=== PATIENT | female | born 1970 | race Caucasian/White ===

== ENCOUNTER 2019-05-14 11:25 | Inpatient (IN) | payer MEDICARE, MEDICAID ==
[~2019-05-14] VITALS: Ht 157.5 cm; Wt 47.6 kg
--- NOTE | 2019-05-14 11:25 | NUR ---
ED Nurse Note: pt brought in by ambulance [id number] for pain and swelling to right middle finger x 10 days. IV line established. Blood samplescollected and sent to lab. pt changed into hospital gown.
[2019-05-14] MEDS ORDERED: Vancomycin 1.5gm/NS Premix 275 ML IVPB SCH (11:30)
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
[2019-05-14 11:36] VITALS: BP 112/70
[2019-05-14] MEDS ORDERED: Vancomycin 1.5gm vial IVPB ONE (11:41)
[2019-05-14] MEDS ORDERED: Vancomycin 1 GM in NS 275 ML IVPB ONE (11:45)
[2019-05-14] MEDS ORDERED: Vancomycin 1gm vial IVPB ONE (11:45)
[2019-05-14 11:50] LABS: BASOPHILS % (AUTO) 0.3 % (0.0-2.0); HEMATOCRIT 35.3 % (37.0-47.0); HEMOGLOBIN 11.1 G/DL (12.0-16.0); LYMPHOCYTES % (AUTO) 21.1 % (20.0-45.0); MEAN CORPUSCULAR VOLUME 73 FL (80-99); MONOCYTES % (AUTO) 7.9 % (1.0-10.0); NEUTROPHILS % (AUTO) 69.7 % (45.0-75.0); PLATELET COUNT 331 K/UL (150-450); RED BLOOD COUNT 4.83 M/UL (4.20-5.40); RED CELL DISTRIBUTION WIDTH 15.4 % (11.6-14.8); WHITE BLOOD COUNT 8.3 K/UL (4.8-10.8)
--- NOTE | 2019-05-14 11:51 | NUR ---
ED Nurse Note: x ray being done at bedside.
[2019-05-14 12:00] LABS: ANION GAP 11 mmol/L (5-15); BLOOD UREA NITROGEN 11 mg/dL (7-18); CALCIUM 8.7 MG/DL (8.5-10.1); CARBON DIOXIDE 26 MMOL/L (21-32); CHLORIDE 105 MMOL/L (98-107); CREATININE 0.7 MG/DL (0.55-1.30); POTASSIUM 3.7 MMOL/L (3.5-5.1); SODIUM 141 MMOL/L (136-145)
[2019-05-14] MEDS ORDERED: Morphine Sulfate 4mg/ml Inj (IV USE ONLY) IVP ONE (12:00)
--- NOTE | 2019-05-14 12:06 | Diagnostic Imaging Report ---
EXAM: XR Right Hand Complete, 3 or More Views CLINICAL HISTORY: INJ TECHNIQUE: Frontal, lateral and oblique views of the right hand. COMPARISON: None FINDINGS: Bones/joints: No displaced fracture or dislocation identified. Osteopenia. Irregularity of the right first distal phalanx may be related to erosion or old trauma. Soft tissues: Soft tissue swelling, most prominently involving the first, second, and third digits. Mild soft tissue swelling in the dorsal right hand IMPRESSION: 1. No displaced fracture or dislocation identified. 2. Soft tissue swelling.
--- NOTE | 2019-05-14 12:12 | NUR ---
ED Nurse Note: report given to sole mack. endorsed plan of care.
--- NOTE | 2019-05-14 12:12 | NUR ---
ED Nurse Note: Patient resting in bed, no s/s of acute distress
[2019-05-14] MEDS ORDERED: Tetanus/Diptheria/Pertussis IM ONE (13:15)
--- NOTE | 2019-05-14 14:26 | NUR ---
ED Nurse Note: Report given to Analilia GONZALEZ
--- NOTE | 2019-05-14 14:35 | NUR ---
NURSE NOTES: Patient arrived to [facility]- via gurney on RA, in stable condition. Patient AOx4, calm. Pain to right middle finger 4/10. No distress, respirations even/unlabored. LAC heplock intact, site asymptomatic. Right middle finger purple discoloration, skin intact, swollen, able to move/wiggle. All belongings with patient, belongings sheet reviewed, patient's wheelchair at bedside, labeled. Oriented patient to room and call light for safety, verbalized understanding. Bed in lowest position, call light in reach, will continue to monitor.
[2019-05-14] MEDS ORDERED: SEROQUEL300 MG ORAL (15:08)
[2019-05-14] MEDS ORDERED: MINIPRESS1 MG PO (15:09)
[2019-05-14] MEDS ORDERED: VENLAFAXINE H37.5 MG ORAL (15:09)
[2019-05-14] MEDS ORDERED: VENTOLIN HFA18 GM INH (15:10)
[2019-05-14 15:15] VITALS: BP 102/63
--- NOTE | 2019-05-14 19:35 | NUR ---
HAND-OFF: Report given to Meenu GONZALEZ, rounds made. Patient vomiting, before eating any food from tray. Meenu will obtain orders for anti-emetic medication, patient verbalized understanding.
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
[2019-05-14 20:00] VITALS: BP 122/75
[2019-05-14] MEDS: Venlafaxine HCl 37.5mg Tab ORAL SCH (21:12)
[2019-05-14] MEDS: Heparin 5000 units/ml inj SUBQ SCH (21:15)
[2019-05-14] MEDS ORDERED: NS IVPB SCH (22:00)
[2019-05-14] MEDS ORDERED: AMPICILLIN IVPB SCH (22:00)
[2019-05-14] MEDS ORDERED: SULBACTAM SOD IVPB SCH (22:00)
[2019-05-14] MEDS: Morphine Sulfate 2mg/ml Inj(IV/IM USE ONLY) IVP PRN (22:53)
[2019-05-15] VITALS: BP 108/80
[2019-05-15 04:00] VITALS: BP 108/72
[2019-05-15] MEDS: Morphine Sulfate 2mg/ml Inj(IV/IM USE ONLY) IVP PRN ×4 (06:34→21:21)
--- NOTE | 2019-05-15 07:12 | NUR ---
NURSE NOTES: DIARRHEA X4, STOOL SPECIMEN SENT TO LAB TO RULE OUT C DIFF, CHARGE NURSE AWARE.
--- NOTE | 2019-05-15 07:43 | NUR ---
NURSE NOTES: Report received from Meenu GONZALEZ, rounds made. Patient resting in left lateral position in bed. Respirations even/unlabored on RA. No distress. Pain 4/10, reviewed when next dose will be available, verbalized understanding. Right middle finger swollen, purple discoloration, intact, able to wiggle, warm, radial pulse palpable, no NT. Multiple skin scab lesions remain unchanged. LAC heplock, intact, site asymptomatic. Call light in reach, bed in lowest position, will continue to monitor.
[2019-05-15 08:00] VITALS: BP 102/71
[2019-05-15] MEDS: Venlafaxine HCl 37.5mg Tab ORAL SCH ×3 (09:40→17:29)
[2019-05-15] MEDS: Heparin 5000 units/ml inj SUBQ SCH ×2 (09:40→21:17)
--- NOTE | 2019-05-15 10:05 | NUR ---
NURSE NOTES: VRE/CRE swab (rectal) and MRSA (right nare), sent to lab at this time.
--- NOTE | 2019-05-15 11:00 | NUR ---
NURSE NOTES: Dr. Gunter notified regarding multiple skin lesion/scabs, which patient claims are due to being homeless, asked if Dr. Velásquez could be on consult, MD did not want to refer Dr. Velásquez.
[2019-05-15 12:00] VITALS: BP 101/59
[2019-05-15 16:00] VITALS: BP 93/57
--- NOTE | 2019-05-15 16:00 | Pre-Procedure Note/Attestation ---
Pre-Procedure Note/Attestation Complete Prior to Procedure Planned Procedure: right Procedure Narrative: Right hand/middle finger incision, drainage, and washout Indications for Procedure Pre-Operative Diagnosis: right hand cellulitis, right middle finger fluid collection/abscess Attestation I attest that I discussed the nature of the procedure; its benefits; risks and complications; and alternatives (and the risks and benefits of such alternatives ), prior to the procedure, with the patient (or the patient's legal customer counter representative). I attest that, if there was a reasonable possibility of needing a blood transfusion, the patient (or the patient's legal customer counter representative) was given the [facility] standardized written summary, pursuant to the Enrique [place] Blood Safety Act ([place] Health and Safety Code # 1645, as amended). I attest that I re-evaluated the patient just prior to the surgery and that there has been no change in the patient's H&P, except as documented below: Barak Astorga MD May 15, 2019 16:00
--- NOTE | 2019-05-15 16:15 | NUR ---
NURSE NOTES: Order for OR consent (plans for OR 05/15) : right middle finger/hand incision drainage/washout. Consent reviewed with patient, NPO at midnight, IVF orders, verbalized understanding, consent signed.
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
[2019-05-15] MEDS: Vancomycin 1gm/D5W 275ml IVPB SCH ×2 (17:21)
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
--- NOTE | 2019-05-15 19:57 | NUR ---
HAND-OFF: Report given to Kourtney GONZALEZ. Endorsed consent for surgery signed, OR tomorrow 05/15, NPO at midnight 05/14, IVF to be started at midnight 05/14.
[2019-05-15 20:00] VITALS: BP 94/53
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
--- NOTE | 2019-05-15 23:39 | NUR ---
NURSES NOTE: Received pt in bed, sleeping. Awakens to name easily. No outward s/s of distress noted. Breathing is even and unlabored on RA. R hand elevated above heart on pillow. 3rd digit on R hand is swollen and discolored. Pt states pain is 6/10 but unable to administer Morphine due to low BP. NPO started at 0000. IVF fluids started at 2300 due to low bp. Patient will continue to be monitored.
[2019-05-16] VITALS (12 sets, daily range): BP systolic 90–104; BP diastolic 53–67
[2019-05-16] MEDS: Morphine Sulfate 2mg/ml Inj(IV/IM USE ONLY) IVP PRN ×3 (00:16→15:13)
--- NOTE | 2019-05-16 07:51 | Anethesia Preoperative Eval ---
Anesthesia Pre-op PMH/ROS General Date of Evaluation: May 16, 2019 Time of Evaluation: 07:27 Anesthesiologist: Marilyn ASA Score: ASA 3 - Emergency Mallampati Score Class I : Soft palate, uvula, fauces, pillars visible Class II: Soft palate, uvula, fauces visible Class III: Soft palate, base of uvula visible Class IV: Only hard plate visible Mallampati Classification: Class II Surgeon: Rizwan Diagnosis: Cellulitis Right Middle Finger Surgical Procedure: I and D Right Middle Finger Anesthesia History: none Family History: no anesthesia problems Allergies: Coded Allergies: PENICILLINS (Unverified Allergy, Unknown, 05/14/19) Uncoded Allergies: PENICILLIN (Allergy, Unknown, 05/14/19) Medications: see eMAR Patient NPO?: Yes Past Medical History Pulmonary: Reports: asthma, COPD Neurologic/Psychiatric: Reports: other - Pysch Disorder Anesthesia Pre-op Phys. Exam Physician Exam Last Vital Signs Date Time Temp Pulse Resp B/P (MAP) Pulse Ox O2 Delivery O2 Flow Rate FiO2 05/16/19 04:00 98.2 77 19 98/58 (71) 98 05/15/19 21:00 Room Air Constitutional: NAD Neurologic: CN 2-12 intact Cardiovascular: RRR Respiratory: CTA Gastrointestinal: S/NT/ND Airway Exam Mallampati Score: Class II MO: full ROM: limited Teeth: missing Anesthesia Pre-op A/P Labs Labs Test 05/14/19 11:30 05/16/19 11:15 White Blood Count 8.3 K/UL (4.8-10.8) Red Blood Count 4.83 M/UL (4.20-5.40) Hemoglobin 11.1 G/DL (12.0-16.0) Hematocrit 35.3 % (37.0-47.0) Mean Corpuscular Volume 73 FL (80-99) Mean Corpuscular Hemoglobin 23.1 PG (27.0-31.0) Mean Corpuscular Hemoglobin Concent 31.5 G/DL (32.0-36.0) Red Cell Distribution Width 15.4 % (11.6-14.8) Platelet Count 331 K/UL (150-450) Mean Platelet Volume 4.8 FL (6.5-10.1) Neutrophils (%) (Auto) 69.7 % (45.0-75.0) Lymphocytes (%) (Auto) 21.1 % (20.0-45.0) Monocytes (%) (Auto) 7.9 % (1.0-10.0) Eosinophils (%) (Auto) 1.0 % (0.0-3.0) Basophils (%) (Auto) 0.3 % (0.0-2.0) Erythrocyte Sedimentation Rate 42 MM/HR (0-20) Sodium Level 141 MMOL/L (136-145) Potassium Level 3.7 MMOL/L (3.5-5.1) Chloride Level 105 MMOL/L (98-107) Carbon Dioxide Level 26 MMOL/L (21-32) Anion Gap 11 mmol/L (5-15) Blood Urea Nitrogen 11 mg/dL (7-18) Creatinine 0.7 MG/DL (0.55-1.30) Estimat Glomerular Filtration Rate > 60 mL/min (>60) Glucose Level 99 MG/DL (74-106) Calcium Level 8.7 MG/DL (8.5-10.1) C-Reactive Protein, Quantitative 3.9 mg/dL (0.00-0.90) Risk Assessment & Plan Assessment: ASA 3E Plan: GA Status Change Before Surgery: No Pre-Antibiotics Drug: Mitchell Dalton MD May 16, 2019 07:51
--- NOTE | 2019-05-16 08:02 | NUR ---
HAND OFF: Report given to CARLOS Wolfe.
[2019-05-16] MEDS: Heparin 5000 units/ml inj SUBQ SCH ×2 (08:35→21:03)
[2019-05-16] MEDS: Venlafaxine HCl 37.5mg Tab ORAL SCH ×3 (08:36→16:34)
[2019-05-16] MEDS ORDERED: Bupivacaine w/Epi 0.5% 30ml Vial INJ ONE (10:07)
[2019-05-16] MEDS ORDERED: Bacitracin Oint 15gm Tube TOPIC ONE (10:07)
[2019-05-16] MEDS ORDERED: Lidocaine 1% 10mg/ml/Epi 0.005mg/ml 30ml vial INJ ONE (10:07)
[2019-05-16] MEDS ORDERED: Bacitracin 50000 Units Vial ONE (10:08)
--- NOTE | 2019-05-16 10:47 | NUR ---
NURSE NOTES: Received pt in bed, AAO x 4. RA. No c/o of distress/pain. IV on LAC 18g noted, running 1/2 NS @ 100 ml/hr. NPO for scheduled procedure. Side rails x 2. Bed in the lowest, locked, and alarm on. Call light within reach. Will continue to monitor
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
--- NOTE | 2019-05-16 11:28 | NUR ---
Social Work This SW received a consult due to homelessness. This Sw met with patient who remains alert/oriented x4, making her own decisions and using a wheelchair for ambulation (independent overall with ADLs). Patient explains she can ambulate short distances, in spite of having one leg shorter than the other. Patient receives SSI, (making over 900 dollars per month), while stating she is working with Social Security to obtain her missing Debit Card. Patient states she is wanting Board and Care placement, once she has access to her funds. Patient explains she has a history of Schizophrenia and Bipolar, but currently does not present any signs of this (not having any auditory or visual hallucinations, nor complains of depression or anxiety, denied any SI/HI). Patient aware to follow up with Mental Health outpatient services, as needed. Patient willing to stay in a longterm upon discharge (due to not having any income). Patient has been living on the street (at [facility]). Pending surgery on her hand at this time. This Sw provided patient with the following resources/contact and address information: Shelters, Shared Collaborative, transitional housing, Board/Care placement agencies, AA meeting (per patient request), Social Security/[place] Game Tester, Mental Health clinics. Clothing also provided to patient (shirt, pants, winter coat). Nursing or SW to assist with the completion of the Homeless Discharge checklist and have patient sign, once patient provides location of discharge (nursing to arrange transportation). No other needs/concerns at this time. Addendum: 05/16/19 at 1141 by JODI FINN Addendum: patient denied any substance abuse, states she uses Medical Marijuana only. According to patient, plans to follow up with AA meetings.
[2019-05-16] MEDS ORDERED: Sterile Water Irrig 1000ml IRRIG ONE (11:40)
[2019-05-16] MEDS ORDERED: LR 1000ml ONE (11:40)
[2019-05-16] MEDS ORDERED: Propofol 200mg/20ml IV ONE (11:40)
[2019-05-16] MEDS ORDERED: Dexamethasone 4mg/ml vial ONE (11:50)
[2019-05-16] MEDS ORDERED: Lidocaine 1% MPF 10mg/ml 5ml ONE (11:50)
[2019-05-16] MEDS ORDERED: NS Irrig 1000ml IRRIG ONE (12:06)
--- NOTE | 2019-05-16 12:35 | Brief Operative Note ---
Immediate Post Operative Note Operative Note Chief Complaint: Right middle finger pain and swelling Pre-op Diagnosis: right hand cellulitis, right middle finger fluid collection/abscess Procedure: Right middle finger exploration, incision, drainage, and washout of abscess Post-op Diagnosis: same as pre-op Findings: consistent w/pre-op dx studies Surgeon: Barak Astorga Driver Manager: None Anesthesiologist: Dr Sanders Anesthesia: general Specimen: yes - Cultures of abscess fluid Complications: none Condition: stable Fluids: see anesthesia records Estimated Blood Loss: none Drains: none Packing: None Implant(s) used?: No Barak Astorga MD May 16, 2019 12:35
[2019-05-16] MEDS ORDERED: DiphenhydrAMINE 25mg Tab ORAL PRN (12:45)
--- NOTE | 2019-05-16 12:46 | Immediate Post-Op Evaluation ---
Immediate Post-Op Evalulation Immediate Post-Op Evalulation Procedure: I and D R Midddle Finger Date of Evaluation: May 16, 2019 Time of Evaluation: 13:02 IV Fluids: 300 LR Blood Products: 0 Estimated Blood Loss: 5 Urinary Output: 0 Blood Pressure Systolic: 96 Blood Pressure Diastolic: 60 Pulse Rate: 84 Respiratory Rate: 16 O2 Sat by Pulse Oximetry: 100 Temperature (Fahrenheit): 97.3 Pain Score (1-10): 1 Nausea: No Vomiting: No Complications 0 Patient Status: awake, reacts, patent, extubated, none Hydration Status: adequate Dru Gram Ancef IV Given Within 1 Hr of Incision: Yes Time Given: 12:01 Mitchell Sanders MD May 16, 2019 12:46
--- NOTE | 2019-05-16 12:47 | 48 Hour Post Anesthesia Eval ---
Post Anesthesia Evaluation Procedure: I and D R Midddle Finger Date of Evaluation: May 16, 2019 Time of Evaluation: 15:12 Blood Pressure Systolic: 106 0: 64 Pulse Rate: 73 Respiratory Rate: 18 Temperature (Fahrenheit): 97.6 O2 Sat by Pulse Oximetry: 97 Airway: patent Nausea: No Vomiting: No Pain Intensity: 1 Hydration Status: adequate Cardiopulmonary Status: Stable Mental Status/LOC: patient returned to baseline Follow-up Care/Observations: 0 Post-Anesthesia Complications: 0 Follow-up care needed: N/A Mitchell Sanders MD May 16, 2019 12:47
[2019-05-16] MEDS ORDERED: Zolpidem 5mg tab ORAL PRN (12:59)
--- NOTE | 2019-05-16 13:53 | NUR ---
NURSE NOTES: Patient came back from surgery in stable condition, AAO x 4. No c/o of pain/distress at this moment
--- NOTE | 2019-05-16 14:10 | NUR ---
RD ASSESSMENT & RECOMMENDATIONS SEE CARE ACTIVITY FOR COMPLETE ASSESSMENT DAILY ESTIMATED NEEDS: Needs based on Underweight, pulmonary 44.7 30-35 kcals/kg 9900-3554 total kcals 1-1.5 g protein/kg 45-67 g total protein 25-30 mL/kg 4290-0328 total fluid mLs NUTRITION DIAGNOSIS: Increased kcal needs r/t underweight status as evidenced by low BMI and pt is 89% [place] Body Weight w/ generalized mild to moderate wasting. CURRENT DIET: now Regular PO DIET RECOMMENDATIONS: Regular/ SOFT EASY CHEW ADDITIONAL RECOMMENDATIONS: 1) Add snacks in b/w meals Add Ensure 1 bottle daily 2) Obtain daily calibrated bed scale wts 3) S/p I&D, rec WINDY BID for tissue healing 4) Updated labs as able
--- NOTE | 2019-05-16 14:57 | NUR ---
*-* INSURANCE *-* ALL AVAIABLE CLINICALS AND REVIEWS HAVE BEEN FAXED TO: [employer] P: [phone] F: [phone] (FAX CLINICALS HERE AND TO [facility] [phone]) & [facility] F: [phone]
[2019-05-16] MEDS: D5 1/2NS w/KCl 20mEq 1,000 ML IV SCH (15:09)
[2019-05-16] MEDS: Vancomycin 1gm/D5W 275ml IVPB SCH ×2 (16:35)
[2019-05-16] MEDS: Docusate 100mg cap ORAL SCH (18:01)
[2019-05-16] MEDS: oxyCODONE HCL/Acetaminophen 5/325mg ORAL PRN (18:44)
--- NOTE | 2019-05-16 19:35 | NUR ---
HAND-OFF: Report given to CARLOS Gurrola.
--- NOTE | 2019-05-16 19:36 | NUR ---
NURSE NOTES: Received report from Aiden GONZALEZ. Rounding is done with outgoing nurse. Patient in chair, a/o x4, and able to known her needs. Patient c/o of tingling on surgery area and patient got pain medication. Awared Dr. Astorga. Will continue to monitor. IV site is intact and IV fluid is running. Bed is on lowest position. Call light within reach. Will continue to monitor.
[2019-05-17] VITALS: BP 108/62
--- NOTE | 2019-05-17 01:14 | Consultation ---
DATE OF CONSULTATION: 05/16/2019 HISTORY OF PRESENT ILLNESS: This is a 48-year-old female with a history of multiple medical issues including COPD, asthma, crystal meth addiction, and depression, who has been admitted to the hospital due to pain and swelling of her right middle finger. The patient stated that she has been in the middle. The patient initially denied using drugs, then she stated that she has been using heroin as well as amphetamines via snorting. The patient is requesting to be on Klonopin and Ativan. We discussed with the patient and I informed her that I will not prescribe her benzodiazepine. She agreed to antidepressants and antipsychotics. The patient denied any suicidal or homicidal ideations. Does not endorse any psychotic symptoms. PAST PSYCHIATRIC HISTORY: She has a history of depression and anxiety. No suicide attempt. PAST MEDICAL HISTORY: COPD and asthma. ALLERGIES: Penicillin. SUBSTANCE ABUSE HISTORY: Significant history of illicit drug use including methamphetamines/crystal meth and heroin. There is no urine toxicology from the ER. MENTAL STATUS EXAMINATION: Alert and oriented times self, place, situation, and date. Mood is neutral. Affect is full and congruent with mood. Thought process is concrete. Thought content, no suicidal or homicidal ideation. ASSESSMENT: [place] I Methamphetamine dependence. Heroin dependence. Major depressive disorder. [place] II Deferred. [place] III cellulitis. [place] IV Homelessness. [place] V 60. PLAN: 1. Change the Effexor to the morning time, 75 mg in the morning. 2. Change the Seroquel to nighttime. 3. Avoid prescribing addictive medications like benzodiazepines and opiates. Jelani Delatorre M.D. DR: GEORGES JOB#: [id number] CC: CRISTINO
[2019-05-17] MEDS: Morphine Sulfate 2mg/ml Inj(IV/IM USE ONLY) IVP PRN ×3 (02:07→16:31)
--- NOTE | 2019-05-17 03:50 | NUR ---
NURSE NOTES: Patient requested change dressing. Changed dressing as ordered.
[2019-05-17 04:00] VITALS: BP 103/60
[2019-05-17] MEDS: oxyCODONE HCL/Acetaminophen 5/325mg ORAL PRN (04:06)
[2019-05-17] MEDS: D5 1/2NS w/KCl 20mEq 1,000 ML IV SCH ×4 (04:14→20:26)
--- NOTE | 2019-05-17 05:00 | NUR ---
NURSE NOTES: Patient refused IV FLUID and explained regarding iv fluid, but patient refused and stated later. Addendum: 05/17/19 at 0630 by Diana Parker RN add: Patient is ambulating with w/c hallway.
--- NOTE | 2019-05-17 07:28 | NUR ---
HAND-OFF: Report given to Niecy GONZALEZ. Patient in stable condition.
--- NOTE | 2019-05-17 07:55 | NUR ---
NURSE NOTES: Handoff received from NEO GONZALEZ. Patient is awake and alert, no signs of distress noted. Right hand dressing is dry and intact, right hand IV is patent and asymptomatic. Patient states that she would like to "go downstairs for fresh air," will ask MD if patio privileges are appropriate. Fall precautions are maintained, pt educated about calling for help when transferring to her wheelchair. Pt is refusing to wear non-slip socks.
[2019-05-17 08:00] VITALS: BP 118/78
--- NOTE | 2019-05-17 08:36 | NUR ---
NURSE NOTES: Received call from KEILY (lab) stating that pt is positive for MRSA nares. Notified SETH, nursing munitions handler supervisor.
[2019-05-17] MEDS: Venlafaxine HCl 37.5mg Tab ORAL SCH (08:47)
[2019-05-17] MEDS: Docusate 100mg cap ORAL SCH ×2 (08:47→17:36)
[2019-05-17] MEDS: Heparin 5000 units/ml inj SUBQ SCH ×2 (08:48→20:25)
[2019-05-17] MEDS: Polysporin Oint 15gm TOPIC SCH ×2 (09:11→17:36)
--- NOTE | 2019-05-17 10:09 | NUR ---
NURSE NOTES: Dr. Gunter notified and aware that patient is positive for MRSA nares.
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
--- NOTE | 2019-05-17 11:25 | NUR ---
NURSE NOTES: Patient transferred to bed 417 safely, report given to NICOLE RN.
--- NOTE | 2019-05-17 11:30 | NUR ---
NURSE NOTES: Received patient from Niecy GONZALEZ. Awake, A and O x 4. IV line on right forearm intact and patent. No SOB or acute distress. Belongings accounted for. Jewelry and elizondo placed in safe. With generalized rashes all over the body, patient claiming as psoriasis, wound nurse made aware. With blanchable sacral redness and scattered ulcerations / wounds, pictures taken. HOB elevated. Bed locked in lowest position. Call light within reach. Will continue plan of care.
[2019-05-17 12:00] VITALS: BP 120/88
--- NOTE | 2019-05-17 13:53 | NUR ---
*-* INSURANCE *-* UIPDATED AVAILABLE CLINICALS AND REVIEWS HAVE BEEN FAXED TO: [facility] P: [phone] F: [phone] (FAX CLINICALS HERE AND TO [facility] [phone]) & [facility] F: [phone] Addendum: 05/18/19 at 0903 by MELIZA LEOS CM LOU:DELGADO REF# [id number] P: [phone] OPT.1 F: CARE COORDIANTOR: MARILU
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
[2019-05-17 16:00] VITALS: BP 123/82
--- NOTE | 2019-05-17 16:04 | NUR ---
FOOD STOREROOM CLERK NOTE SW met w/ pt to clarify DC plan. Pt presents as A&o4x. PT reports she will stay at her friend, Steffen's tent near [facility]. Pt believes custodial would not be the best place for social distancing. SW explained negative ramification of homelessness vs. shelters. Pt verbalized understanding. Pt provided verbal consent to contact her friend Steffen [phone]. SW spoke w/ Steffen and confirmed that pt can stay w/ him. Pt goes to [facility] in [facility] and she is aware of wound care upon DC. Emergency contact: Shanique (daughter) [phone]. Pt has 3 adult children. Addendum: 05/18/19 at 1410 by CHRISTA HARDY HAYLEY provided pants as per request.
[2019-05-17] MEDS: Vancomycin 1gm/D5W 275ml IVPB SCH ×2 (16:32)
--- NOTE | 2019-05-17 17:22 | General Progress Note ---
Progress Note Progress Note Patient seen and examined. Doing better. Right middle finger is still sore, but feeling better. Swelling improving, and has gained a little more mobility of that finger. VSS Aebrile. PE: Right middle finger wound clean. No drainage. Erythema of surrounding skin, and swelling has improved. Continue IV abx and transition to oral antibiotic. Cutlures pending. Continue bid dressing changes with antibiotic ointment and xeroform dressing. MD Rizwan Arnold Perry MD May 17, 2019 17:22
--- NOTE | 2019-05-17 18:16 | NUR ---
NURSE NOTES: Patient requesting anti anxiety medication, Dr Delatorre made aware, awaiting response.
--- NOTE | 2019-05-17 18:46 | NUR ---
NURSE NOTES: Dr Delatorre recommends buspar 10mg PO BID for anxiety, if patient agrees. But patient prefers another medication, prazison 1mg (patient unsure of spelling). Dr Delatorre made aware, awaiting response.
--- NOTE | 2019-05-17 19:16 | NUR ---
HAND-OFF: Report given to
--- NOTE | 2019-05-17 19:30 | NUR ---
NURSE NOTES: Patient sitting on chair while drawing on paper, alert and oriented x4, asking for pain med. Will medicate as ordered. Instructed to use call light for assistance. Call light in reach. Bed in lowest and lock engaged. Will continue plan of care.
[2019-05-17 20:00] VITALS: BP 120/82
--- NOTE | 2019-05-17 23:02 | Psych Consult Progress Note ---
Psychiatry Progress Note Psychiatry Progress Note Medications Current Medications Medications (Trade) Dose Ordered Sig/Walter Route PRN Reason Start Time Stop Time Status Last Admin Dose Admin Acetaminophen (Tylenol) 650 mg Q4H PRN ORAL FEVER 05/16/19 12:45 06/15/19 12:44 Al Hydroxide/Mg Hydroxide (Mylanta) 15 ml Q6H PRN ORAL DYSPEPSIA 05/16/19 12:45 06/15/19 12:44 Bacitracin/ Polymyxin B Sulfate (Polysporin Oint) 1 applic BID TOPIC 05/17/19 09:00 08/15/19 08:59 05/17/19 17:36 Dextrose/ Electrolytes 1,000 ml @ 100 mls/hr Q10H IV 05/16/19 14:00 06/15/19 13:59 05/17/19 20:26 Diphenhydramine HCl (Benadryl) 25 mg Q8H PRN ORAL Itching/Pruritis 05/16/19 12:45 06/15/19 12:44 05/17/19 08:47 Docusate Sodium (Colace) 100 mg TWICE A DAY ORAL 05/16/19 18:00 06/15/19 17:59 05/17/19 17:36 Heparin Sodium (Porcine) (Heparin 5000 units/ml) 5,000 units EVERY 12 HOURS SUBQ 05/14/19 21:00 06/28/19 20:59 05/17/19 20:25 Levofloxacin 100 ml @ 100 mls/hr Q24H IVPB 05/14/19 21:00 05/21/19 20:59 05/17/19 21:34 Morphine Sulfate (Morphine Sulfate) 2 mg Q6H PRN IVP Severe Pain (Pain Scale 7-10) 05/14/19 17:30 05/21/19 17:29 05/17/19 16:31 Nicotine (Nicoderm) 1 patch Q24H TDERMAL 05/17/19 15:00 08/15/19 14:59 05/17/19 15:33 Ondansetron HCl (Zofran) 4 mg Q6H PRN IVP Nausea & Vomiting 05/14/19 20:15 06/13/19 20:14 05/14/19 21:19 Oxycodone/ Acetaminophen (Percocet 5-325) 1 tab Q4H PRN ORAL moderate pain 05/16/19 13:00 05/23/19 12:59 05/17/19 04:06 Pantoprazole (Protonix) 40 mg DAILY ORAL 05/14/19 21:00 06/13/19 20:59 05/17/19 08:47 Prazosin HCl (Minipress) 1 mg QHS ORAL 05/14/19 21:00 06/13/19 20:59 05/17/19 20:16 Quetiapine Fumarate (SEROqueL) 300 mg BEDTIME ORAL 05/17/19 21:00 07/01/19 20:59 05/17/19 20:17 Vancomycin HCl (Vanco rx to dose) 1 ea DAILY PRN MISC Per rx protocol 05/15/19 15:15 06/14/19 15:14 Vancomycin HCl 1 gm/Sodium Chloride 275 ml @ 183.708 mls/hr Q12HR@0300,1500 IVPB 05/18/19 03:00 05/23/19 02:59 Venlafaxine HCl (Effexor) 75 mg DAILY ORAL 05/16/19 16:15 08/14/19 16:14 05/17/19 08:47 Zolpidem Tartrate (Ambien) 5 mg DAILYPRN PRN ORAL Insomnia 05/16/19 12:59 05/23/19 12:58 05/16/19 22:12 Neurological/Psychiatric: Reports: anxiety, depressed, emotional problems, headache Allergies: Coded Allergies: PENICILLINS (Unverified Allergy, Unknown, 05/14/19) Uncoded Allergies: PENICILLIN (Allergy, Unknown, 05/14/19) Objective Data Height (Feet): 5 Height (Inches): 2.00 Weight (Pounds): 100 General Appearance: WD/WN, no apparent distress, alert, cachetic, thin, alert oriented x3 Appearance: disheveled Behavior Mannerisms: good eye contact Mental Status Exam - Mood: anxious, agitated Additional Comments: oriented times self, place, situation, and date. Mood is neutral. Affect is full and congruent with mood. Thought process is concrete. Thought content, no suicidal or homicidal ideation. ASSESSMENT: [place] I Methamphetamine dependence. Heroin dependence. Major depressive disorder. PLAN: 1. Change the Effexor to the morning time, 75 mg in the morning. 2. Change the Seroquel to nighttime 3. Prazosin 1mg po qhs Jelani Delatorre MD May 17, 2019 23:02
[2019-05-18] VITALS: BP 126/78
[2019-05-18] MEDS ORDERED: Vancomycin 1 GM in NS 275 ML IVPB SCH (03:00)
[2019-05-18 04:00] VITALS: BP 91/53
[2019-05-18] MEDS: Morphine Sulfate 2mg/ml Inj(IV/IM USE ONLY) IVP PRN (05:26)
[2019-05-18] MEDS: D5 1/2NS w/KCl 20mEq 1,000 ML IV SCH (05:30)
--- NOTE | 2019-05-18 07:45 | NUR ---
NURSE NOTES: Received patient in bed asleep. No SOB or acute distress. Wound dressing intact. IV line intact. HOB elevated. Bed locked in lowest position. Call light within reach. Will continue plan of care.
--- NOTE | 2019-05-18 07:49 | NUR ---
HAND-OFF: Report given to CARLOS Mcmillan.
--- NOTE | 2019-05-18 07:52 | General Progress Note ---
Progress Note Progress Note Niecy is feeling better. Able to have more mobility in her right middle finger, with decreased swelling and decreased discomfort. Her hips are the main thing bothering her. Stable. Aebrile. Right middle finger examined. Wounds are clean and healing. Swelling in finger has improved with only trace swelling. FU cultures. Continue antibioitics per medical team. Discharge planning. coating line worker to arrange home wound care. Barak Astorga MD May 18, 2019 07:52
[2019-05-18 08:00] VITALS: BP 95/54
[2019-05-18] MEDS: Docusate 100mg cap ORAL SCH (08:14)
[2019-05-18] MEDS: Venlafaxine HCl 37.5mg Tab ORAL SCH (08:14)
[2019-05-18] MEDS: Polysporin Oint 15gm TOPIC SCH (08:14)
[2019-05-18] MEDS: Heparin 5000 units/ml inj SUBQ SCH (08:16)
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
[2019-05-18 09:57] VITALS: BP 107/61
[2019-05-18] MEDS: oxyCODONE HCL/Acetaminophen 5/325mg ORAL PRN (10:07)
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
--- NOTE | 2019-05-18 11:12 | NUR ---
*-* INSURANCE *-* UIPDATED AVAILABLE CLINICALS AND REVIEWS HAVE BEEN FAXED TO: [facility] [place] REF# [id number] P: [phone] F: [phone] (FAX CLINICALS HERE AND TO [facility] [phone]) CANARY RAISER: MARILU P: [phone] [facility] F: [phone]
[2019-05-18] MEDS ORDERED: Doxycycline Monohydrate 100mg ORAL SCH (11:15)
[2019-05-18] MEDS ORDERED: EFFEXOR37.5 MG ORAL (11:25)
[2019-05-18] MEDS ORDERED: MINIPRESS1 MG ORAL (11:25)
[2019-05-18] MEDS ORDERED: BACTRIM 400-801 EACH ORAL (11:25)
[2019-05-18] MEDS ORDERED: NORCO 5-325 TA1 EAC1 ORAL (11:25)
[2019-05-18] MEDS ORDERED: SEROQUEL100 MG ORAL (11:25)
[2019-05-18 12:00] VITALS: BP 102/61
--- NOTE | 2019-05-18 16:00 | NUR ---
NURSE NOTES: Patient discharged to [facility] in stable condition. IV line removed. ID band removed. Medications filled by pharmacy and given to patient. Discharge instructions given, verbalized understanding. Wound dressing changed. Belongings accounted for. Taxi voucher given. Wheeled to lobby by desk teaching manager and transported by taxi.
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
--- NOTE | 2019-05-19 11:36 | NUR ---
*-* INSURANCE *-* UPDATED AVAILABLE CLINICALS AND REVIEWS [facility] [facility] [id number] P: [phone] F: [phone] (FAX CLINICALS HERE AND TO [facility] [phone]) ENTERPRISE PROJECT MANAGER: MARILU P: [phone] [facility] F: [phone] Addendum: 05/19/19 at 1136 by MELIZA LEOS CM DISCHARGE SUMMARY HAS BEEN FAXED
== END 2019-05-18 16:17 | disposition home or self-care (01) | DRG 603 ==
LOC: EDBD 11:25 → EMR 12:20 → EDBEDREQ 13:39 → 3E 13:51 → 4E 05-17 11:31
PROC: 0X9J0ZZ Drainage of Right Hand, Open Approach (ICD-10-PCS; principal; 2019-05-16 12:00)
DX: L03.011 Cellulitis of right finger (principal); Z68.1 Body mass index [BMI] 19.9 or less, adult; L02.511 Cutaneous abscess of right hand; F15.20 Other stimulant dependence, uncomplicated; F11.20 Opioid dependence, uncomplicated; S61.23 Puncture wound without foreign body of finger without damage to nail; W26.8XXS Contact with other sharp object(s), not elsewhere classified, sequela; J44.9 Chronic obstructive pulmonary disease, unspecified; R63.6 Underweight; Z88.0 Allergy status to penicillin; Z59.0 Homelessness; F32.9 Major depressive disorder, single episode, unspecified; F11.10 Opioid abuse, uncomplicated; F15.10 Other stimulant abuse, uncomplicated; B19.20 Unspecified viral hepatitis C without hepatic coma
CPT/HCPCS: 36415; 80048; 80202; 81025; 85025; 85651; 86140; 87040; 87045; 87070; 87075; 87081; 87181; 87205; 87324; 90471; 90715; 94003; 94150; 96365; 96375; 99285; J2405